=== PATIENT | female | born 1975 | race American Indian/Alaskan Native ===

== ENCOUNTER 2019-11-26 19:35 | Emergency (ER) | payer OTHER ==
[2019-11-26 19:51] VITALS: BP 129/85
[2019-11-26] MEDS ORDERED: IBUPROFEN 600 MG TAB PO ONE (21:27)
[2019-11-26] MEDS ORDERED: DIPHtheria,PERTUSSIS(ACELL),TETANUS VACCINE/PF 0.5 ML VIAL IM ONE (21:27)
[2019-11-26] MEDS ORDERED: NEOMY 3.5 MG/BACIT 400 UNITS/POLY B 5000 UNITS/GM OINT PACKET TP ONE (21:27)
[2019-11-26] MEDS ORDERED: cephALEXin 500 MG CAP PO ONE (21:29)
--- NOTE | 2019-11-26 22:44 | Emergency Department Report ---
ED General Adult HPI - General Chief complaint: Wound/Laceration Stated complaint: LACERATION TO LEFT THUMB Source: patient Mode of arrival: Ambulatory Limitations: No Limitations - History of Present Illness Initial comments: Patient is a 44 yo AA female with no past medical history who presents to the ED with c/o acute onset persistent severe painful bleeding left thumb laceration after she accidentally cut the tip of her left thumb with a sharp kitchen knife while cutting onions 3 days ago. Patient states that the pain and bleeding have persisted, and that the bleeding has worsened. Patient also states that she is not uptodate on her tetanus vaccinations. Patient denies numbness, tingling or weakness of left thumb, nausea, vomiting or fever and chills. MD Complaint: left thumb laceration wound -: Sudden, days(s) (3) Location: upper extremity (left thumb) Radiation: non-radiation Severity scale (0 -10): 7 Quality: aching, sharp Consistency: constant Improves with: none Worsens with: none Associated Symptoms: denies other symptoms. denies: confusion, chest pain, cough, diaphoresis, fever/chills, malaise, nausea/vomiting, rash, seizure, weakness, other Treatments Prior to Arrival: none - Related Data Previous Rx's Medication Instructions Recorded Last Taken Type Ibuprofen [Motrin] 600 mg PO Q8H PRN #24 tablet 11/26/19 Unknown Rx cephALEXin [Keflex] 500 mg PO Q8HR #30 cap 11/26/19 Unknown Rx Allergies Allergy/AdvReac Type Severity Reaction Status Date / Time No Known Allergies Allergy Verified 11/26/19 19:50 ED Review of Systems ROS: Stated complaint: LACERATION TO LEFT THUMB Other details as noted in HPI Constitutional: denies: chills, fever Eyes: denies: eye pain, eye discharge, vision change ENT: denies: ear pain, throat pain Respiratory: denies: cough, shortness of breath, wheezing Cardiovascular: denies: chest pain, palpitations Endocrine: no symptoms reported Gastrointestinal: denies: abdominal pain, nausea, diarrhea Genitourinary: denies: urgency, dysuria, discharge Musculoskeletal: arthralgia (left thumb pain with bleeding laceration). denies: back pain, joint swelling Skin: other (bleeding distal left thumb). denies: rash, lesions Neurological: denies: headache, weakness, paresthesias Psychiatric: denies: anxiety, depression Hematological/Lymphatic: denies: easy bleeding, easy bruising ED Past Medical Hx - Past Medical History Previous Medical History?: No - Surgical History Past Surgical History?: Yes Additional Surgical History: x2 - Social History Smoking Status: Never Smoker Substance Use Type: Alcohol - Medications Home Medications: Home Medications Medication Instructions Recorded Confirmed Last Taken Type Ibuprofen [Motrin] 600 mg PO Q8H PRN #24 tablet 11/26/19 Unknown Rx cephALEXin [Keflex] 500 mg PO Q8HR #30 cap 11/26/19 Unknown Rx ED Physical Exam - General Limitations: No Limitations General appearance: alert, in no apparent distress - Head Head exam: Present: atraumatic, normocephalic, normal inspection - Eye Eye exam: Present: normal appearance, PERRL, EOMI Pupils: Present: normal accommodation - ENT ENT exam: Present: normal exam, normal orophraynx, mucous membranes moist, TM's normal bilaterally, normal external ear exam - Neck Neck exam: Present: normal inspection, full ROM - Respiratory Respiratory exam: Present: normal lung sounds bilaterally. Absent: respiratory distress, wheezes, rales, chest wall tenderness, decreased breath sounds - Cardiovascular Cardiovascular Exam: Present: regular rate, normal rhythm, normal heart sounds. Absent: systolic murmur, diastolic murmur, rubs, gallop - GI/Abdominal GI/Abdominal exam: Present: soft, normal bowel sounds. Absent: tenderness, guarding, hyperactive bowel sounds, hypoactive bowel sounds - Extremities Exam Extremities exam: Present: normal inspection, full ROM, tenderness (Palpable left thumb tenderness due to a bleeding 3 cm ulcerated laceration), normal capillary refill - Back Exam Back exam: Present: normal inspection, full ROM. Absent: muscle spasm, paraspinal tenderness - Neurological Exam Neurological exam: Present: alert, oriented X3, CN II-XII intact, normal gait, reflexes normal - Psychiatric Psychiatric exam: Present: normal affect, normal mood - Skin Skin exam: Present: warm, dry, intact, normal color, other (Bleeding 3 cm distal left thumb ulcerated wound). Absent: rash ED Course Vital Signs 11/26/19 11/26/19 19:50 21:45 Temperature 98.3 F Pulse Rate 90 Respiratory 16 16 Rate Blood Pressure 129/85 [Right] O2 Sat by Pulse 97 Oximetry ED Medical Decision Making - Medical Decision Making This is a 44 yo AA female with no past medical history who presents to the ED with c/o acute onset persistent severe painful bleeding left thumb laceration after she accidentally cut the tip of her left thumb with a sharp kitchen knife while cutting onions 3 days ago. Patient states that the pain and bleeding have persisted, and that the bleeding has worsened. Patient also states that she is not uptodate on her tetanus vaccinations. In the ED, patient is alert and oriented x3 and is not in any distress but appears to be in pain. The left thumb bleeding ulcerated wound was cleaned thoroughly and dressed appropriately. A thumb spica splint was also applied to the left thumb to protect the wound. Patient was also treated for pain, also given booster tetanus vaccination. On reevaluation, patient pain is well controlled with medications. Patient was discharged home on pain medications and oral antibiotics, and was advised to follow-up with her primary care physician in 5 to 7 days for reevaluation or return to the ED immediately if symptoms get worse. - Differential Diagnosis Infected left thumb laceration; thumb laceration; abrasion Critical care attestation.: If time is entered above; I have spent that time in minutes in the direct care of this critically ill patient, excluding procedure time. ED Disposition Clinical Impression: Laceration of left thumb Qualifiers: Encounter type: initial encounter Damage to nail status: without damage Foreign body presence: without foreign body Qualified Code(s): S61.012A - Laceration without foreign body of left thumb without damage to nail, initial encounter Injury of left thumb Qualifiers: Encounter type: initial encounter Qualified Code(s): S69.92XA - Unspecified injury of left wrist, hand and finger(s), initial encounter Laceration of left thumb with infection Qualifiers: Encounter type: initial encounter Qualified Code(s): S61.012A - Laceration without foreign body of left thumb without damage to nail, initial encounter; L08.9 - Local infection of the skin and subcutaneous tissue, unspecified Disposition: DC-01 TO HOME OR SELFCARE Is pt being admited?: No Does the pt Need Aspirin: No Condition: Stable Instructions: Finger Laceration (ED) Additional Instructions: Take medications with food, drink plenty of fluids and follow up with your Primary Care Physician in 7-10 days for reevaluation. Return to the ED immediately if symptoms get worse. Prescriptions: cephALEXin [Keflex] 500 mg PO Q8HR #30 cap Ibuprofen [Motrin] 600 mg PO Q8H PRN #24 tablet PRN Reason: Pain Referrals: [facility] [Provider Group] - 3-5 Days Time of Disposition: 22:43 Print Language: YI
== END 2019-11-26 22:50 | disposition home or self-care (01) ==
LOC: EDSEX → ED 19:35
DX: S61.012A Laceration without foreign body of left thumb without damage to nail, initial encounter (principal); Z79.899 Other long term (current) drug therapy; Z98.890 Other specified postprocedural states; W26.0XXA Contact with knife, initial encounter; Y93.89 Activity, other specified; Y92.89 Other specified places as the place of occurrence of the external cause; Y99.8 Other external cause status
CPT/HCPCS: 90471; 90715; A6250